=== PATIENT | female | born 1935 | race Caucasian/White ===

== ENCOUNTER 2018-12-01 08:27 | Inpatient (IN) ==
[2018-12-01 09:31] LABS: Basophils # 0.1 10*3/uL (0.0-0.2); Basophils % 0.3 % (0.0-0.8); Hematocrit 49.5 VOL% (35.7-47.0); Hemoglobin 16.2 GM/DL (12.0-16.0); Immature Granulocytes % 0.6 %; Immature Granulocytes Absolute 0.14 #; Lymphocytes # 1.4 10*3/uL (1.4-4.0); Mean Corpuscular HGB Conc 32.7 GM/DL (32-36); Mean Corpuscular Hemoglobin 31 PG (27-34); Mean Corpuscular Volume 93.8 FL (87-102); Mean Platelet Volume 10.7 FL (9.6-12.0); Monocytes # 1.7 10*3/uL (0.11-0.8); Monocytes % 7.6 % (1.7-12.7); Neutrophils # 19.3 10*3/uL (1.4-7.4); Neutrophils % 85.5 % (38.7-73.9); Platelet Count 260 T/CUMM (130-400); Red Blood Count 5.28 MC/CUMM (3.8-5.5); Red Cell Distribution Width 12.9 % (9.3-17.3); White Blood Count 22.6 T/CUMM (4-12)
[2018-12-01] MEDS ORDERED: PANTOPRAZOLE 40 MG VIAL IV STA (09:37)
[2018-12-01] MEDS ORDERED: SODIUM CHLORIDE 0.9% 500 ML IV STA (09:37)
[2018-12-01] MEDS ORDERED: ONDANSETRON 4 MG/2 ML VIAL IV STA (09:37)
[2018-12-01 09:54] LABS: Albumin 3.8 G/DL (3.4-5.0); Calcium 9.8 MG/DL (8.5-10.1); Osmolality,Calculated 281.4 MOS/KG (273-304); Potassium 3.3 MMOL/L (3.5-5.1); Total Protein 7.8 G/DL (6.4-8.3)
[2018-12-01 09:59] LABS: Band Neutrophils 2 % (0-10); Hypochromasia Slight; Lymphocytes 8 % (20-55); Platelet Estimate Adequate; Segmented Neutrophils 80 % (50-85); Total Cells Counted 100
[2018-12-01 10:11] LABS: PT Patient Result 10.7 SECS
[2018-12-01 10:41] LABS: Troponin I < 0.015 NG/ML (0.00-0.045)
[2018-12-01] MEDS ORDERED: PIPERACILLIN/TAZOBACTAM 3,375 MG in SODIUM CHLORIDE 0.9% 100 ML IV STA (11:03)
[2018-12-01] MEDS ORDERED: ACETAMINOPHEN 325 MG TABLET PO PRN (11:35)
[2018-12-01] MEDS ORDERED: HYDROmorphone 2 MG/1 ML VIAL IV PRN ×2 (11:35)
[2018-12-01] MEDS ORDERED: ALBUTEROL/IPRATROPIUM 3 ML NEB RESP TX PRN (11:35)
[2018-12-01] MEDS ORDERED: KETOROLAC 15 MG/1 ML VIAL IV PRN ×2 (11:35→12:42)
[2018-12-01] MEDS ORDERED: MEPERIDINE 50 MG TABLET PO PRN ×4 (11:40→12:42)
[2018-12-01] MEDS ORDERED: PIPERACILLIN/TAZOBACTAM 3,375 MG in SODIUM CHLORIDE 0.9% 100 ML IV SCH (12:00)
[2018-12-01] MEDS ORDERED: BUPIVACAINE 0.5% 50 ML VIAL ONE (12:54)
[2018-12-01] MEDS ORDERED: SODIUM CHLORIDE 0.9% 20 ML VIAL IV ONE (12:54)
[2018-12-01] MEDS ORDERED: EPINEPHrine 1 MG/ML VIAL ONE (12:54)
[2018-12-01] MEDS: LACTATED RINGERS 1,000 ML IV SCH ×2 (13:47→20:29)
[2018-12-01] MEDS ORDERED: ONDANSETRON 4 MG/2 ML VIAL ONE (14:02)
[2018-12-01] MEDS ORDERED: MEPERIDINE 25 MG/1 ML VIAL ONE ×2 (14:02→14:46)
[2018-12-01] MEDS: MEPERIDINE 25 MG/1 ML VIAL IV SCH ×7 (14:05→23:52)
[2018-12-01] MEDS: ONDANSETRON 4 MG/2 ML VIAL IV PRN ×2 (14:05→19:24)
[2018-12-01] MEDS ORDERED: PROPOFOL 200 MG/20 ML VIAL IV ONE (14:12)
[2018-12-01] MEDS ORDERED: GLYCOPYRROLATE 0.4 MG/2 ML VIAL ONE (14:12)
[2018-12-01] MEDS ORDERED: MIDAZOLAM 2 MG/2 ML VIAL ONE (14:12)
[2018-12-01] MEDS ORDERED: fentaNYL 100 MCG/2 ML VIAL ONE (14:12)
[2018-12-01] MEDS ORDERED: SEVOFLURANE 1 UNIT/15 MINUTE INH ONE (14:12)
[2018-12-01] MEDS ORDERED: ROCURONIUM 100 MG/10 ML VIAL IV ONE (14:13)
[2018-12-01] MEDS ORDERED: LACTATED RINGERS 2,000 ML IV ONE (14:13)
[2018-12-01] MEDS ORDERED: SUCCINYLCHOLINE 200 MG/10 ML VIAL ONE (14:13)
[2018-12-01] MEDS ORDERED: NEOSTIGMINE 10 MG/10 ML VIAL ONE (14:13)
[2018-12-01] MEDS ORDERED: hydrALAZINE 20 MG/1 ML VIAL IV PRN (16:44)
[2018-12-01] MEDS ORDERED: MAGNESIUM SULF RIDER 4 GM in PREMIX 1 EACH IV PRN (16:44)
[2018-12-01] MEDS: MAGNESIUM SULF RIDER 2 GM in PREMIX 1 EACH IV PRN (20:21)
[2018-12-01] MEDS: PIPERACILLIN/TAZOBACTAM 3,375 MG in SODIUM CHLORIDE 0.9% 100 ML IV SCH (20:37)
[2018-12-01 21:18] LABS: Apearance,Urine Slightly Hazy (Clear); Bacteria,Urine Occasional /HPF (Few); Bilirubin,Urine Negative (Negative); Blood, Urine Large mg/dL (Negative); Glucose,Urine (UA) Negative (Negative); Hyaline Casts,Urine 1 /LPF (0-3); Ketones,Urine 20 mg/dL (Negative); Mucus,Urine Occasional /LPF (Occasional); Nitrite,Urine Negative (Negative); Protein,Urine Negative; RBC,Urine 68 /HPF (0-4); Urine Color Yellow (Yellow); Urine Specific Gravity 1.041 (1.001-1.035); Urine Urobilinogen < 2.0 EU/DL (0.2-1.0); WBC,Urine 33 /HPF (0-6)
[2018-12-01] MEDS: POTASSIUM CHLORIDE RIDER 10 MEQ in PREMIX 1 EACH IV PRN ×2 (22:28→23:48)
[2018-12-02] MEDS: POTASSIUM CHLORIDE RIDER 10 MEQ in PREMIX 1 EACH IV PRN ×2 (01:06→02:08)
[2018-12-02] MEDS: MEPERIDINE 25 MG/1 ML VIAL IV SCH ×12 (02:10→22:17)
[2018-12-02] MEDS: PIPERACILLIN/TAZOBACTAM 3,375 MG in SODIUM CHLORIDE 0.9% 100 ML IV SCH ×3 (05:01→20:23)
[2018-12-02 05:16] LABS: Basophils % 0.1 % (0.0-0.8); Eosinophils % 0.1 % (0.00-10.9); Hematocrit 37.3 VOL% (35.7-47.0); Hemoglobin 12.1 GM/DL (12.0-16.0); Immature Granulocytes % 0.4 %; Immature Granulocytes Absolute 0.04 #; Lymphocytes # 1.6 10*3/uL (1.4-4.0); Lymphocytes % 15.2 % (21.3-54.2); Mean Corpuscular HGB Conc 32.4 GM/DL (32-36); Mean Corpuscular Hemoglobin 31 PG (27-34); Mean Corpuscular Volume 94.9 FL (87-102); Mean Platelet Volume 11.5 FL (9.6-12.0); Monocytes # 1.1 10*3/uL (0.11-0.8); Monocytes % 10.7 % (1.7-12.7); Neutrophils # 7.7 10*3/uL (1.4-7.4); Neutrophils % 73.5 % (38.7-73.9); Red Blood Count 3.93 MC/CUMM (3.8-5.5); Red Cell Distribution Width 13.3 % (9.3-17.3); White Blood Count 10.5 T/CUMM (4-12)
[2018-12-02 05:17] LABS: Platelet Count 201 T/CUMM (130-400)
[2018-12-02 05:28] LABS: Osmolality,Calculated 279.3 MOS/KG (273-304); Potassium 4.5 MMOL/L (3.5-5.1)
[2018-12-02 05:30] LABS: Band Neutrophils 1 % (0-10); Lymphocytes 7 % (20-55); Platelet Estimate Adequate; Segmented Neutrophils 79 % (50-85); Total Cells Counted 100
[2018-12-02 05:31] LABS: Hypochromasia 1+; Ovalocytes Slight
[2018-12-02] MEDS ORDERED: LEVOTHYROXINE 150 MCG TABLET PO SCH (07:00)
[2018-12-02] MEDS ORDERED: LISINOPRIL 2.5 MG TABLET PO SCH (09:00)
[2018-12-02] MEDS ORDERED: METOPROLOL SUCCINATE XL 25 MG TABLET PO SCH (09:00)
[2018-12-02] MEDS: LISINOPRIL 2.5 MG TABLET PO SCH (09:03)
[2018-12-02] MEDS: PANTOPRAZOLE 40 MG VIAL IV SCH (09:03)
[2018-12-02] MEDS: LEVOTHYROXINE 150 MCG TABLET PO SCH (09:03)
[2018-12-02] MEDS: METOPROLOL SUCCINATE XL 25 MG TABLET PO SCH (09:03)
[2018-12-02] MEDS: PHENOL 1.4% THROAT SPRAY 177 ML BOTTLE PO PRN (15:45)
[2018-12-02] MEDS: LACTATED RINGERS 1,000 ML IV SCH ×2 (16:56→16:57)
[2018-12-03] MEDS: LACTATED RINGERS 1,000 ML IV SCH ×3 (00:24→18:48)
[2018-12-03] MEDS: MEPERIDINE 25 MG/1 ML VIAL IV SCH ×6 (02:00→10:58)
[2018-12-03 04:17] LABS: Basophils % 0.4 % (0.0-0.8); Eosinophils # 0.2 10*3/uL (0.0-0.87); Eosinophils % 1.5 % (0.00-10.9); Hematocrit 37.8 VOL% (35.7-47.0); Hemoglobin 11.7 GM/DL (12.0-16.0); Immature Granulocytes % 0.6 %; Immature Granulocytes Absolute 0.06 #; Lymphocytes # 1.7 10*3/uL (1.4-4.0); Lymphocytes % 17.2 % (21.3-54.2); Mean Corpuscular Hemoglobin 31 PG (27-34); Mean Platelet Volume 10.9 FL (9.6-12.0); Monocytes # 0.8 10*3/uL (0.11-0.8); Monocytes % 8.3 % (1.7-12.7); Neutrophils # 7.3 10*3/uL (1.4-7.4); Platelet Count 187 T/CUMM (130-400); Red Blood Count 3.82 MC/CUMM (3.8-5.5); Red Cell Distribution Width 13.3 % (9.3-17.3); White Blood Count 10.1 T/CUMM (4-12)
[2018-12-03 04:35] LABS: Osmolality,Calculated 273.5 MOS/KG (273-304); Potassium 3.9 MMOL/L (3.5-5.1)
[2018-12-03] MEDS: PHENOL 1.4% THROAT SPRAY 177 ML BOTTLE PO PRN (04:35)
[2018-12-03] MEDS: PIPERACILLIN/TAZOBACTAM 3,375 MG in SODIUM CHLORIDE 0.9% 100 ML IV SCH ×3 (04:54→20:58)
[2018-12-03] MEDS: LEVOTHYROXINE 150 MCG TABLET PO SCH (07:51)
[2018-12-03] MEDS: PANTOPRAZOLE 40 MG VIAL IV SCH (08:58)
[2018-12-03] MEDS: LISINOPRIL 2.5 MG TABLET PO SCH (09:38)
[2018-12-03] MEDS: METOPROLOL SUCCINATE XL 25 MG TABLET PO SCH (09:38)
[2018-12-03] MEDS: CHLORHEXIDINE 4% SOLN 118 ML BOTTLE TOP SCH (10:45)
[2018-12-03] MEDS ORDERED: MEPERIDINE 25 MG/1 ML VIAL IV PRN (11:03)
[2018-12-03] MEDS: METOCLOPRAMIDE 10 MG/2 ML VIAL IV SCH ×3 (11:45→23:44)
[2018-12-03] MEDS: ASPIRIN 300 MG SUPP RECTAL SCH (17:09)
[2018-12-04] MEDS: PIPERACILLIN/TAZOBACTAM 3,375 MG in SODIUM CHLORIDE 0.9% 100 ML IV SCH ×3 (03:41→21:21)
[2018-12-04] MEDS: METOCLOPRAMIDE 10 MG/2 ML VIAL IV SCH ×4 (05:20→23:11)
[2018-12-04] MEDS: LEVOTHYROXINE 150 MCG TABLET PO SCH (06:38)
[2018-12-04] MEDS: PANTOPRAZOLE 40 MG VIAL IV SCH (08:45)
[2018-12-04] MEDS: LISINOPRIL 2.5 MG TABLET PO SCH (08:45)
[2018-12-04] MEDS: METOPROLOL SUCCINATE XL 25 MG TABLET PO SCH (08:46)
[2018-12-04] MEDS: CHLORHEXIDINE 4% SOLN 118 ML BOTTLE TOP SCH (09:15)
[2018-12-04] MEDS: LACTATED RINGERS 1,000 ML IV SCH (12:45)
[2018-12-04] MEDS: ONDANSETRON 4 MG/2 ML VIAL IV PRN (23:28)
[2018-12-05] MEDS: PIPERACILLIN/TAZOBACTAM 3,375 MG in SODIUM CHLORIDE 0.9% 100 ML IV SCH ×3 (03:46→20:57)
[2018-12-05] MEDS: LACTATED RINGERS 1,000 ML IV SCH (03:49)
[2018-12-05] MEDS: METOCLOPRAMIDE 10 MG/2 ML VIAL IV SCH ×3 (05:21→17:32)
[2018-12-05] MEDS: LEVOTHYROXINE 150 MCG TABLET PO SCH (06:18)
[2018-12-05] MEDS: PANTOPRAZOLE 40 MG VIAL IV SCH (08:33)
[2018-12-05] MEDS: ASPIRIN 300 MG SUPP RECTAL SCH (08:34)
[2018-12-05] MEDS: CHLORHEXIDINE 4% SOLN 118 ML BOTTLE TOP SCH (08:34)
[2018-12-05] MEDS: LISINOPRIL 2.5 MG TABLET PO SCH (08:35)
[2018-12-05] MEDS: METOPROLOL SUCCINATE XL 25 MG TABLET PO SCH (08:35)
[2018-12-05] MEDS: DEXTROSE 5% NACL 0.45% 1,000 ML IV SCH (11:21)
[2018-12-05] MEDS: ENOXAPARIN 40 MG/0.4 ML SYRINGE SUBCUT SCH (12:11)
[2018-12-05] MEDS: BENZONATATE 100 MG CAPSULE PO SCH (18:42)
[2018-12-06] MEDS: METOCLOPRAMIDE 10 MG/2 ML VIAL IV SCH ×4 (00:15→17:42)
[2018-12-06] MEDS: DEXTROSE 5% NACL 0.45% 1,000 ML IV SCH ×4 (01:04→20:25)
[2018-12-06 04:10] LABS: Basophils # 0.1 10*3/uL (0.0-0.2); Basophils % 0.8 % (0.0-0.8); Eosinophils # 0.2 10*3/uL (0.0-0.87); Eosinophils % 1.9 % (0.00-10.9); Hematocrit 38.8 VOL% (35.7-47.0); Hemoglobin 12.9 GM/DL (12.0-16.0); Immature Granulocytes % 5.3 %; Immature Granulocytes Absolute 0.42 #; Lymphocytes # 1.2 10*3/uL (1.4-4.0); Lymphocytes % 15.1 % (21.3-54.2); Mean Corpuscular HGB Conc 33.2 GM/DL (32-36); Mean Corpuscular Hemoglobin 30 PG (27-34); Mean Corpuscular Volume 91.5 FL (87-102); Mean Platelet Volume 10.2 FL (9.6-12.0); Monocytes # 1.2 10*3/uL (0.11-0.8); Monocytes % 14.6 % (1.7-12.7); Neutrophils % 62.3 % (38.7-73.9); Platelet Count 272 T/CUMM (130-400); Red Blood Count 4.24 MC/CUMM (3.8-5.5); Red Cell Distribution Width 12.9 % (9.3-17.3)
[2018-12-06 04:21] LABS: Calcium 8.4 MG/DL (8.5-10.1); Osmolality,Calculated 276.5 MOS/KG (273-304); Potassium 2.8 MMOL/L (3.5-5.1)
[2018-12-06] MEDS: PIPERACILLIN/TAZOBACTAM 3,375 MG in SODIUM CHLORIDE 0.9% 100 ML IV SCH ×3 (04:45→20:25)
[2018-12-06 06:16] LABS: Eosinophils 3 % (0-10); Lymphocytes 16 % (20-55); Platelet Estimate Adequate; Segmented Neutrophils 76 % (50-85); Total Cells Counted 100
[2018-12-06 06:17] LABS: Anisocytosis 1+
[2018-12-06] MEDS: LEVOTHYROXINE 150 MCG TABLET PO SCH (07:25)
[2018-12-06] MEDS: POTASSIUM CHLORIDE RIDER 10 MEQ in PREMIX 1 EACH IV PRN ×8 (07:26→21:30)
[2018-12-06] MEDS: PANTOPRAZOLE 40 MG VIAL IV SCH (08:20)
[2018-12-06] MEDS: BENZONATATE 100 MG CAPSULE PO SCH (08:22)
[2018-12-06] MEDS: METOPROLOL SUCCINATE XL 25 MG TABLET PO SCH (08:22)
[2018-12-06] MEDS: LISINOPRIL 2.5 MG TABLET PO SCH (08:22)
[2018-12-06] MEDS: CHLORHEXIDINE 4% SOLN 118 ML BOTTLE TOP SCH (08:23)
[2018-12-06] MEDS ORDERED: BENZONATATE 100 MG CAPSULE PO SCH (09:00)
[2018-12-06] MEDS: MAGNESIUM SULF RIDER 2 GM in PREMIX 1 EACH IV PRN (10:09)
[2018-12-06] MEDS: ENOXAPARIN 40 MG/0.4 ML SYRINGE SUBCUT SCH (12:13)
[2018-12-06 17:11] LABS: Potassium 3.4 MMOL/L (3.5-5.1)
[2018-12-07] MEDS: METOCLOPRAMIDE 10 MG/2 ML VIAL IV SCH ×4 (00:19→18:59)
[2018-12-07] MEDS: PIPERACILLIN/TAZOBACTAM 3,375 MG in SODIUM CHLORIDE 0.9% 100 ML IV SCH ×3 (04:50→20:57)
[2018-12-07] MEDS: LEVOTHYROXINE 150 MCG TABLET PO SCH (06:26)
[2018-12-07] MEDS: POTASSIUM CHLORIDE RIDER 10 MEQ in PREMIX 1 EACH IV PRN ×3 (07:04→10:11)
[2018-12-07] MEDS: ASPIRIN 300 MG SUPP RECTAL SCH (08:37)
[2018-12-07] MEDS: PANTOPRAZOLE 40 MG VIAL IV SCH (08:37)
[2018-12-07] MEDS: CHLORHEXIDINE 4% SOLN 118 ML BOTTLE TOP SCH (09:18)
[2018-12-07] MEDS: METOPROLOL SUCCINATE XL 25 MG TABLET PO SCH (09:18)
[2018-12-07] MEDS: LISINOPRIL 2.5 MG TABLET PO SCH (09:18)
[2018-12-07] MEDS: BENZONATATE 100 MG CAPSULE PO SCH (09:18)
[2018-12-07] MEDS: DEXT 5% NACL 0.45% KCL 20 MEQ 20 MEQ/1,000 ML BAG IV SCH (10:35)
[2018-12-07] MEDS: ENOXAPARIN 40 MG/0.4 ML SYRINGE SUBCUT SCH (11:57)
[2018-12-07] MEDS: DEXTROSE 5% NACL 0.45% 1,000 ML IV SCH ×2 (18:59→19:08)
[2018-12-08] MEDS: METOCLOPRAMIDE 10 MG/2 ML VIAL IV SCH ×4 (01:20→19:20)
[2018-12-08] MEDS: DEXT 5% NACL 0.45% KCL 20 MEQ 20 MEQ/1,000 ML BAG IV SCH ×2 (03:42→10:00)
[2018-12-08] MEDS: PIPERACILLIN/TAZOBACTAM 3,375 MG in SODIUM CHLORIDE 0.9% 100 ML IV SCH ×3 (03:55→19:39)
[2018-12-08 05:05] LABS: Basophils # 0.1 10*3/uL (0.0-0.2); Basophils % 0.8 % (0.0-0.8); Eosinophils # 0.4 10*3/uL (0.0-0.87); Hematocrit 36.6 VOL% (35.7-47.0); Hemoglobin 12.1 GM/DL (12.0-16.0); Immature Granulocytes % 4.3 %; Immature Granulocytes Absolute 0.32 #; Lymphocytes # 1.8 10*3/uL (1.4-4.0); Lymphocytes % 24.4 % (21.3-54.2); Mean Corpuscular HGB Conc 33.1 GM/DL (32-36); Mean Corpuscular Hemoglobin 30 PG (27-34); Monocytes % 13.9 % (1.7-12.7); Neutrophils # 3.8 10*3/uL (1.4-7.4); Neutrophils % 51.6 % (38.7-73.9); Platelet Count 280 T/CUMM (130-400); Red Blood Count 3.98 MC/CUMM (3.8-5.5); Red Cell Distribution Width 13.2 % (9.3-17.3); White Blood Count 7.4 T/CUMM (4-12)
[2018-12-08 05:26] LABS: Calcium 7.8 MG/DL (8.5-10.1); Osmolality,Calculated 279.1 MOS/KG (273-304); Potassium 3.5 MMOL/L (3.5-5.1)
[2018-12-08] MEDS: LEVOTHYROXINE 150 MCG TABLET PO SCH (06:34)
[2018-12-08] MEDS: BENZONATATE 100 MG CAPSULE PO SCH (09:21)
[2018-12-08] MEDS: PANTOPRAZOLE 40 MG VIAL IV SCH (09:21)
[2018-12-08] MEDS: LISINOPRIL 2.5 MG TABLET PO SCH (09:21)
[2018-12-08] MEDS: METOPROLOL SUCCINATE XL 25 MG TABLET PO SCH (09:21)
[2018-12-08] MEDS: POTASSIUM CHLORIDE RIDER 10 MEQ in PREMIX 1 EACH IV PRN (09:32)
[2018-12-08] MEDS ORDERED: GLUCAGON 1 MG VIAL IM PRN (09:52)
[2018-12-08] MEDS ORDERED: DEXTROSE 50% 25 GM/50 ML SYRINGE IV PRN (09:52)
[2018-12-08] MEDS: INSULIN REGULAR 100 UNIT/ML SUBCUT SCH ×2 (12:49→19:16)
[2018-12-08] MEDS: ENOXAPARIN 40 MG/0.4 ML SYRINGE SUBCUT SCH (12:52)
[2018-12-08] MEDS: CHLORHEXIDINE 4% SOLN 118 ML BOTTLE TOP SCH (12:56)
[2018-12-08] MEDS ORDERED: FAT EMULSION 20% 250 ML IV SCH (14:00)
[2018-12-08] MEDS ORDERED: TRACE ELEMENTS (5) 1 ML, MULTIVITAMIN INJ 10 ML in AMINO ACIDS/DEXT/LYTES 5-15% 2,000 ML IV SCH (17:00)
[2018-12-08] MEDS ORDERED: DEXTROSE 10% 1,000 ML IV PRN (17:00)
[2018-12-09] MEDS: INSULIN REGULAR 100 UNIT/ML SUBCUT SCH ×5 (00:17→23:46)
[2018-12-09] MEDS: METOCLOPRAMIDE 10 MG/2 ML VIAL IV SCH ×3 (00:21→12:00)
[2018-12-09] MEDS: PIPERACILLIN/TAZOBACTAM 3,375 MG in SODIUM CHLORIDE 0.9% 100 ML IV SCH ×2 (03:37→12:00)
[2018-12-09 05:57] LABS: Calcium 7.7 MG/DL (8.5-10.1); Osmolality,Calculated 279.1 MOS/KG (273-304); Potassium 3.6 MMOL/L (3.5-5.1); Prealbumin 16.4 MG/DL (20-40)
[2018-12-09] MEDS: LEVOTHYROXINE 150 MCG TABLET PO SCH (06:38)
[2018-12-09] MEDS: ASPIRIN 300 MG SUPP RECTAL SCH (09:00)
[2018-12-09] MEDS: BENZONATATE 100 MG CAPSULE PO SCH (09:46)
[2018-12-09] MEDS: LISINOPRIL 2.5 MG TABLET PO SCH (09:47)
[2018-12-09] MEDS: PANTOPRAZOLE 40 MG VIAL IV SCH (09:47)
[2018-12-09] MEDS: METOPROLOL SUCCINATE XL 25 MG TABLET PO SCH (09:47)
[2018-12-09] MEDS: CHLORHEXIDINE 4% SOLN 118 ML BOTTLE TOP SCH (09:50)
[2018-12-09] MEDS: POTASSIUM CHLORIDE RIDER 10 MEQ in PREMIX 1 EACH IV PRN (10:15)
[2018-12-09] MEDS: ENOXAPARIN 40 MG/0.4 ML SYRINGE SUBCUT SCH (13:03)
[2018-12-09] MEDS: PANTOPRAZOLE 40 MG TABLET PO SCH (13:06)
[2018-12-09] MEDS: POTASSIUM CHLORIDE 20 MEQ TABLET PO PRN ×2 (13:28→16:20)
[2018-12-09] MEDS: CLOPIDOGREL 75 MG TABLET PO SCH (13:29)
[2018-12-09] MEDS: ASPIRIN EC 81 MG TABLET PO SCH (13:29)
[2018-12-09] MEDS ORDERED: TRACE ELEMENTS (5) 1 ML, MULTIVITAMIN INJ 10 ML in AMINO ACIDS/DEXT/LYTES 5-15% 2,000 ML IV SCH (17:00)
[2018-12-09] MEDS ORDERED: SIMVASTATIN 40 MG TABLET PO SCH (21:00)
[2018-12-10 05:42] LABS: Basophils % 0.7 % (0.0-0.8); Eosinophils # 0.2 10*3/uL (0.0-0.87); Eosinophils % 3.4 % (0.00-10.9); Hemoglobin 12.3 GM/DL (12.0-16.0); Immature Granulocytes % 4.6 %; Immature Granulocytes Absolute 0.27 #; Lymphocytes # 1.7 10*3/uL (1.4-4.0); Lymphocytes % 28.7 % (21.3-54.2); Mean Corpuscular HGB Conc 33.2 GM/DL (32-36); Mean Corpuscular Hemoglobin 30 PG (27-34); Mean Corpuscular Volume 91.4 FL (87-102); Mean Platelet Volume 10.6 FL (9.6-12.0); Monocytes # 0.9 10*3/uL (0.11-0.8); Monocytes % 15.3 % (1.7-12.7); Neutrophils # 2.8 10*3/uL (1.4-7.4); Neutrophils % 47.3 % (38.7-73.9); Platelet Count 267 T/CUMM (130-400); Red Blood Count 4.05 MC/CUMM (3.8-5.5); Red Cell Distribution Width 13.2 % (9.3-17.3); White Blood Count 5.9 T/CUMM (4-12)
[2018-12-10 05:52] LABS: Calcium 7.6 MG/DL (8.5-10.1); Osmolality,Calculated 275.4 MOS/KG (273-304); Potassium 3.6 MMOL/L (3.5-5.1)
[2018-12-10] MEDS: LEVOTHYROXINE 150 MCG TABLET PO SCH (06:10)
[2018-12-10] MEDS: INSULIN REGULAR 100 UNIT/ML SUBCUT SCH ×2 (06:13→13:50)
[2018-12-10] MEDS: LISINOPRIL 2.5 MG TABLET PO SCH (08:55)
[2018-12-10] MEDS: METOPROLOL SUCCINATE XL 25 MG TABLET PO SCH (08:55)
[2018-12-10] MEDS: ASPIRIN EC 81 MG TABLET PO SCH (08:55)
[2018-12-10] MEDS: BENZONATATE 100 MG CAPSULE PO SCH (08:56)
[2018-12-10] MEDS: PANTOPRAZOLE 40 MG TABLET PO SCH (08:56)
[2018-12-10] MEDS: CLOPIDOGREL 75 MG TABLET PO SCH (08:56)
[2018-12-10] MEDS: CHLORHEXIDINE 4% SOLN 118 ML BOTTLE TOP SCH (08:57)
[2018-12-10] MEDS ORDERED: MAGNESIUM OXIDE 400 MG TABLET PO ONE (10:30)
[2018-12-10] MEDS: ENOXAPARIN 40 MG/0.4 ML SYRINGE SUBCUT SCH (10:32)
[2018-12-10 11:50] VITALS: BP 154/74
[2018-12-10] MEDS: DEXT 5% NACL 0.45% KCL 20 MEQ 20 MEQ/1,000 ML BAG IV SCH (12:21)
== END 2018-12-10 16:43 | disposition home health service (06) | DRG 329 ==
LOC: N.ED 08:27 → N.EDINP 11:35 → N.ED 11:56 → N.3E 15:04
PROVIDERS: ADMIT Surgery; ATTEND Surgery